=== PATIENT | male | born 1985 | race Caucasian/White ===

== ENCOUNTER 2019-09-28 08:23 | Outpatient (CLI) | payer OTHER ==
--- NOTE | 2019-09-28 10:42 | MRI ---
MRI cervical spine noncontrast: DATE: 09/28/2019 HISTORY: 34-year-old male with cervicalgia and left cervical radiculopathy. COMPARISON: None FINDINGS: At C5-6 there is a central, left paracentral, and left lateral moderately large extruded disc herniat ion which displaces the spinal cord posteriorly, mildly-moderately flattening the left side of the spinal cord, effaces CSF signal in the left side of the spinal canal, and impinges on the left C6 ner ve root at both the lateral aspect of the spinal canal and proximal portion of the left neural foramen. The disc herniation has a small component in the contralateral right paracentral aspect of t he spinal canal. 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 There is loss of lordosis which could represent muscle spasm. Vertebral body heights are maintained. Bone marrow signal is normal. There is mild disc space narrowing at C5-6. The rest of the disc spaces are maintained. No high-grade facet DJD. All the rest of levels demonstrate no additional find ings. No syrinx. No definite intramedullary signal abnormality. 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
== END 2019-09-28 08:24 | disposition home or self-care (01) ==
LOC: SCSMRI 08:23
PROVIDERS: ATTEND Orthopaedic Surgery
DX: M54.2 Cervicalgia (principal); M50.222 Other cervical disc displacement at C5-C6 level; M25.80 Other specified joint disorders, unspecified joint
CPT/HCPCS: 72141